=== PATIENT | female | born 1940 | race Caucasian/White ===

== ENCOUNTER 2018-07-11 13:11 | Inpatient (IN) | payer MEDICARE, OTHER ==
[2018-07-11 13:11] VITALS: BMI 34.3
--- NOTE | 2018-07-11 13:52 | ED PDOC ---
Syncope/Near Syncope/Dizziness Time Seen by Provider: 07/11/18 13:23 Chief Complaint (Nursing): Dizziness/Lightheaded Chief Complaint (Provider): Dizziness/Lightheaded History Per: Patient History/Exam Limitations: no limitations Onset/Duration Of Symptoms: Other (This morning) Additional Complaint(s): 77 years old female with a history of hypertension presents to ER for an evaluation of lightheadedness since this morning associated with mild nausea. Patient reports she took her blood pressure medication this morning. She denies headache, cheat pain, shortness of breath and focal weakness. PMD: Sabino Javed I Past Medical History Reviewed: Historical Data, Nursing Documentation, Vital Signs Vital Signs: Last Vital Signs Temp 97 F L 07/11/18 13:16 Pulse 89 07/11/18 13:33 Resp 18 07/11/18 13:16 BP 193/119 H 07/11/18 13:33 Pulse Ox 99 07/11/18 13:33 - Medical History PMH: HTN - Surgical History Surgical History: No Surg Hx - Family History Family History: States: Unknown Family Hx - Allergies Allergies/Adverse Reactions: Allergies Allergy/AdvReac Type Severity Reaction Status Date / Time Penicillins Allergy SWELLING Verified 07/11/18 13:14 Review of Systems ROS Statement: Except As Marked, All Systems Reviewed And Found Negative Cardiovascular: Positive for: Light Headedness. Negative for: Chest Pain Respiratory: Negative for: Shortness of Breath Gastrointestinal: Positive for: Nausea Neurological: Positive for: Weakness (Focal). Negative for: Headache Physical Exam - Reviewed Nursing Documentation Reviewed: Yes Vital Signs Reviewed: Yes - Physical Exam Appears: Positive for: Well, No Acute Distress Head Exam: Positive for: ATRAUMATIC, NORMOCEPHALIC Skin: Positive for: Normal Color, Warm, Dry Eye Exam: Positive for: Normal appearance, EOMI, PERRL Neck: Positive for: Normal, Painless ROM, Supple Cardiovascular/Chest: Positive for: Irregularly Irregular. Negative for: Murmur Respiratory: Positive for: Normal Breath Sounds. Negative for: Respiratory Distress Gastrointestinal/Abdominal: Positive for: Normal Exam, Soft. Negative for: Tenderness Back: Positive for: Normal Inspection. Negative for: L CVA Tenderness, R CVA Tenderness Extremity: Positive for: Normal ROM. Negative for: Pedal Edema, Swelling Neurologic/Psych: Positive for: Alert, Oriented (x3) - ECG O2 Sat by Pulse Oximetry: 99 (RA) Pulse Ox Interpretation: Normal Medical Decision Making Medical Decision Making: Time: 1331 MDM: uncontrolled hypertension --Will obtain EKG and treat with Metoprolol 25 mg PO Scribe Attestation: Documented by Kaitlyn Hadley, acting as a scribe for Vimal Plaza MD. Provider Scribe Attestation: All medical record entries made by the Scribe were at my direction and personally dictated by me. I have reviewed the chart and agree that the record accurately reflects my personal performance of the history, physical exam, medical decision making, and the department course for this patient. I have also personally directed, reviewed, and agree with the discharge instructions and disposition. CHADSVASC2 score 4. Will consult cardiology re anticoagulation Discussed with Dr. Khoury, recommends SubQ Lovenox Disposition - Clinical Impression Clinical Impression: New onset a-fib - Patient ED Disposition Is Patient to be Admitted: Yes - Disposition Disposition Time: 14:01 Condition: FAIR Forms: [employer] ([place]an) - Pt Status Changed To: Hospital Disposition Of: Observation - POA Present On Arrival: None
[2018-07-11] MEDS ORDERED: Enoxaparin 120 mg Syringe SC STA (14:07)
[2018-07-11 14:33] LABS: BASO % 0.5 % (0.0-2.0); EOS % 0.5 % (0.0-4.0); HEMOGLOBIN 12.5 g/dL (12.0-16.0); LYMPH # 1.3 K/uL (1.0-4.3); LYMPH % 14.2 % (20.0-40.0); MEAN CELL VOLUME 95.6 fl (81.0-99.0); MEAN CORPUSCULAR HEMOGLOBIN 32.1 pg (27.0-31.0); MEAN CORPUSCULAR HGB CONC 33.6 g/dL (33.0-37.0); MEAN PLATELET VOLUME 7.7 fl (7.2-11.7); MONO # 0.3 K/uL (0.0-0.8); MONO % 3.5 % (0.0-10.0); NEUT # 7.3 K/uL (1.8-7.0); NEUT % 81.3 % (50.0-75.0); NRBC % 0.2 % (0.0-0.0); RBC 3.89 Mil/uL (3.80-5.20); RED CELL DISTRIBUTION WIDTH 13.4 % (11.5-14.5); WHITE BLOOD COUNT 8.9 K/uL (4.8-10.8)
[2018-07-11 14:41] LABS: ALB/GLOB RATIO 1.4 (1.0-2.1); ALBUMIN 4.3 g/dL (3.5-5.0); ALT/SGPT 31 U/L (9-52); AST/SGOT 24 U/L (14-36); BLOOD UREA NITROGEN 16 mg/dl (7-17); CALCIUM 9.2 mg/dL (8.4-10.2); GFR NON-AFRICAN AMERICAN > 60
[2018-07-11 15:13] LABS: T3 1.08 nmol/L (1.49-2.60)
--- NOTE | 2018-07-11 19:49 | CP.PCM.CON ---
History of Present Illness - History of Present Illness History of Present Illness: THE PATIENT IS A 77 YEAR OLD FEMALE WHO I KNOW FROM MY PRIVATE OFFICE PRACTICE. SHE HAS A HISTORY OF HYPERTENSION AND IS ON METOPROLOL, VERAPAMIL AND LOSARTAN. SHE NEVER HAD A HEART PROBLEM SUCH CAD. SHE STATES SHE WAS FINE YESTERDAY BUT WHEN SHE WOKE UP THIS MORNING SHE WAS LIGHTHEADED AND FELT LIKE SHE MIGHT PASS OUT AND SHE HAD NAUSEA BUT DID NOT VOMIT. SHE CAME TO THE ER AND WAS FOUND TO HAVE NEW ONSET ATRIAL FIBRILLATION. SHE STATES SHE TOOK HER MEDICINES AT HOME THIS MORNING AND WAS GIVEN MOR METOPROLOL IN THE ER AND SHE WAS STARTED ON LOVENOX. SHE DENIES CHEST PAIN OR PALPITATIONS. I WAS CALLED BY DR JONES TO SEE HER. Past Patient History - Past Social History Smoking Status: Former Smoker - CARDIAC Hx Hypertension: Yes - PULMONARY Hx Respiratory Disorders: No - NEUROLOGICAL Hx Neurological Disorder: No - HEENT Hx HEENT Problems: No - RENAL Hx Chronic Kidney Disease: No - ENDOCRINE/METABOLIC Hx Endocrine Disorders: No - HEMATOLOGICAL/ONCOLOGICAL Hx Blood Disorders: No - INTEGUMENTARY Hx Dermatological Problems: No - MUSCULOSKELETAL/RHEUMATOLOGICAL Hx Musculoskeletal Disorders: No - GASTROINTESTINAL Hx Gastrointestinal Disorders: No - GENITOURINARY/GYNECOLOGICAL Hx Genitourinary Disorders: No - PSYCHIATRIC Hx Psychophysiologic Disorder: No Hx Substance Use: No - SURGICAL HISTORY Other/Comment: tumor removal left breast Meds Allergies/Adverse Reactions: Allergies Allergy/AdvReac Type Severity Reaction Status Date / Time Penicillins Allergy SWELLING Verified 07/11/18 13:14 Physical Exam - Respiratory Exam Respiratory Exam: Clear to Auscultation Bilateral - Cardiovascular Exam Cardiovascular Exam: Irregular Rhythm, +S1, +S2 - Extremities Exam Additional comments: MILD LE EDEMA BILAT(CHRONIC) - Additional Findings Additional findings: EKG ATRIAL FIBRILLATION 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 ATRIAL FIBRILLATION TROPONIN NORMAL Results - Vital Signs Recent Vital Signs: Last Vital Signs Temp 97 F L 07/11/18 13:16 Pulse 82 07/11/18 19:26 Resp 19 07/11/18 19:26 BP 182/72 H 07/11/18 19:26 Pulse Ox 98 07/11/18 19:26 - Labs Result Diagrams: 07/11/18 14:28 07/11/18 14:28 Labs: Laboratory Results - last 24 hr 07/11/18 07/11/18 14:28 14:28 WBC 8.9 RBC 3.89 Hgb 12.5 Hct 37.2 MCV 95.6 MCH 32.1 H MCHC 33.6 RDW 13.4 Plt Count 254 MPV 7.7 Neut % (Auto) 81.3 H Lymph % (Auto) 14.2 L [place] % (Auto) 3.5 Eos % (Auto) 0.5 Baso % (Auto) 0.5 Neut # (Auto) 7.3 H Lymph # (Auto) 1.3 [place] # (Auto) 0.3 Eos # (Auto) 0.0 Baso # (Auto) 0.0 Sodium 134 Potassium 3.9 Chloride 96 L Carbon Dioxide 25 Anion Gap 17 BUN 16 Creatinine 0.4 L Est GFR ( Amer) > 60 Est GFR (Non-Af Amer) > 60 Random Glucose 140 H Calcium 9.2 Total Bilirubin 0.4 AST 24 ALT 31 Alkaline Phosphatase 77 Troponin I 0.0140 Total Protein 7.4 Albumin 4.3 Globulin 3.1 Albumin/Globulin Ratio 1.4 Thyroxine (T4) 7.50 Total T3 1.08 L TSH 3rd Generation 1.18 Assessment & Plan - Assessment and Plan (Free Text) Assessment: NEW ONSET ATRIAL FIBRILLATION HYPERTENSION Plan: THE PATIENT WILL BE ADMITTED TO N ON TELEMETRY CONTINUE METOPROLOL 100 MGS PO Q 12 HOURS AND WILL INCREASE LOSARTAN TO 100 MGS DAILY WILL ADD DIGOXIN AND O2 SERIAL EKGS AND CE, TFT, CXR ECHOCARDIOGRAM NOTE: I WILL BE AWAY UNTIL 07/21/[address] CHRISTEL JAMISON WILL BE COVERING ME
[2018-07-11] MEDS ORDERED: Digoxin 250 mcg (0.25 mg) Tab PO ONE (19:59)
[2018-07-11] MEDS ORDERED: Digoxin 250 mcg (0.25 mg) Tab ONE (20:45)
[2018-07-12] MEDS: Latanoprost 0.005% Opht SOUTION OU SCH ×2 (00:53→20:59)
--- NOTE | 2018-07-12 09:08 | RAD ---
Date of service: 07/11/2018 HISTORY: AT [facility] COMPARISON: Chest radiograph dated 08/08/2016. FINDINGS: LUNGS: No active pulmonary disease. PLEURA: No significant pleural effusion identified, no pneumothorax apparent. CARDIOVASCULAR: Aortic atherosclerotic calcifications. Cardiomediastinal silhouette stably enlarged. OSSEOUS STRUCTURES: Unchanged. VISUALIZED UPPER ABDOMEN: Normal. OTHER FINDINGS: None. IMPRESSION: No active disease.
[2018-07-12] MEDS: Enoxaparin 120 mg Syringe SC SCH ×2 (09:24→20:58)
[2018-07-12] MEDS: Digoxin 125 mcg (0.125 mg) Tab PO SCH (09:24)
--- NOTE | 2018-07-12 13:17 | CP.PCM.PN ---
Subjective - Date & Time of Evaluation Date of Evaluation: 07/12/18 Time of Evaluation: 13:13 - Subjective Subjective: Resting comfortably, c/o nausea,eating lunch now Objective - Vital Signs/Intake and Output Vital Signs (last 24 hours): Temp Pulse Resp BP Pulse Ox 97.4 F L 81 19 191/96 H 96 07/12/18 12:14 07/12/18 12:14 07/12/18 12:14 07/12/18 12:14 07/12/18 12:14 - Medications Medications: Current Medications Aspirin (Ecotrin) 81 mg PO DAILY [facility] Last Admin: 07/12/18 09:24 Dose: 81 mg Digoxin (Digoxin) 0.125 mg PO DAILY [facility] Last Admin: 07/12/18 09:24 Dose: 0.125 mg Enoxaparin Sodium (Lovenox) 120 mg SC Q12 [facility]; Protocol Last Admin: 07/12/18 09:24 Dose: 120 mg Home Med (Timolol Xe 0.5% [Timoptic-Xe 0.5% Opht Gel]) 1 drop EACHEYE DAILY [facility] Latanoprost (Xalatan Opht) 1 drop OU HS [facility] Last Admin: 07/12/18 00:53 Dose: Not Given Losartan Potassium (Cozaar) 100 mg PO DAILY [facility] Last Admin: 07/12/18 09:24 Dose: 100 mg Metoprolol Tartrate (Lopressor) 100 mg PO Q12 [facility] Last Admin: 07/12/18 09:24 Dose: 100 mg Ondansetron HCl (Zofran Inj) 4 mg IVP Q6 PRN PRN Reason: Nausea/Vomiting Last Admin: 07/12/18 13:09 Dose: 4 mg - Labs Labs: 07/11/18 14:28 07/11/18 14:28 - Head Exam Head Exam: NORMAL INSPECTION - Respiratory Exam Respiratory Exam: Clear to Ausculation Bilateral - Cardiovascular Exam Cardiovascular Exam: Irregular Rhythm - GI/Abdominal Exam GI & Abdominal Exam: Normal Bowel Sounds - Extremities Exam Extremities Exam: Normal Inspection Assessment and Plan - Assessment and Plan (Free Text) Assessment: #1 New onset atrial fibrillation: HR controlled on metprolol and digoxin. Echo reviewed LVEF 50% LAE 4.6 cm , mild MR , observe on telemetry continue anticoagulation. #2 Hypertension: Bp elevated on Losartan , Metoprolol will add Amlodipine for better Bp control 5mg now
--- NOTE | 2018-07-12 18:36 | CARD ---
APPROVED REPORT Date of service: 07/12/2018 EXAM: Two-dimensional and M-mode echocardiogram with Doppler and color Doppler. Other Information Quality : GoodRhythm : Atrial Fibrillation INDICATION Atrial Fibrillation 2D DIMENSIONS IVSd1.24 (0.7-1.1cm)LVDd5.24 (3.9-5.9cm) LVOT Diameter2.05 (1.8-2.4cm)PWd1.24 (0.7-1.1cm) IVSs1.11 (0.8-1.2cm)LVDs4.11 (2.5-4.0cm) FS (%) 21.6 %PWs1.55 (0.8-1.2cm) M-Mode DIMENSIONS Left Atrium (MM)5.46 (2.5-4.0cm)IVSd0.99 (0.7-1.1cm) Aortic Root2.85 (2.2-3.7cm)LVDd5.49 (4.0-5.6cm) Aortic Cusp Exc.1.65 (1.5-2.0cm)PWd1.13 (0.7-1.1cm) IVSs1.09 cmFS (%) 27 % LVDs4.04 (2.0-3.8cm)PWs1.62 cm Mitral Valve E/A ratio0.0 TDI E/Lateral E'0.0E/Medial E'0.0 LEFT VENTRICLE The left ventricle is normal size. There is normal left ventricular wall thickness. The systolic function is mildly impaired. The estimated ejection fraction is -45% There is mild global hypokinesis of the left ventricle. The left ventricular diastolic function cannot be assessed due to underlying atrial fibrillation. No left ventricle thrombus noted on this study. There is no ventricular septal defect visualized. There is no left ventricular aneurysm. There is no mass noted in the left ventricle. RIGHT VENTRICLE The right ventricle is normal size. There is normal right ventricular wall thickness. The right ventricular systolic function is normal. ATRIA The left atrium is moderately dilated. The right atrium size is normal. The interatrial septum is intact with no evidence for an atrial septal defect. AORTIC VALVE The aortic valve is normal in structure. No aortic regurgitation is present. There is no aortic valvular stenosis. There is no aortic valvular vegetation. MITRAL VALVE The mitral valve is normal in structure. There is no evidence of mitral valve prolapse. There is no mitral valve stenosis. There is mild mitral valve regurgitation noted. TRICUSPID VALVE The tricuspid valve is normal in structure. There is no tricuspid valve regurgitation noted. There is no tricuspid valve prolapse or vegetation. There is no tricuspid valve stenosis. PULMONIC VALVE The pulmonary valve is normal in structure. There is trivial pulmonic valvular regurgitation. There is no pulmonic valvular stenosis. GREAT VESSELS The aortic root is normal in size. The ascending aorta is normal in size. The pulmonary artery is normal. The IVC is normal in size and collapses >50% with inspiration. PERICARDIAL EFFUSION There is no pericardial effusion. There is no pleural effusion. <Conclusion> Technically difficult study The systolic function is mildly impaired. The estimated ejection fraction is -45-50% There is mild global hypokinesis of the left ventricle. The left ventricular diastolic function cannot be assessed due to underlying atrial fibrillation. The left atrium is moderately dilated. There is mild mitral valve regurgitation noted. There is no tricuspid valve regurgitation noted.
--- NOTE | 2018-07-12 21:30 | HP ---
HISTORY OF PRESENT ILLNESS: Ms. Garcia is a 77-year-old female who was admitted via the emergency room because of feeling faint, associated with lightheadedness and a feeling like she was going to pass out on the morning of admission. She also indicates that she has had nausea but did not vomit, although she vomited this morning. She came to the emergency room and was found to be in rapid atrial fibrillation which is new. PAST MEDICAL HISTORY: She has a past medical history of hypertension; left breast cancer, status post biopsy and is presently being treated for it, poor compliance to therapy and diet. FAMILY HISTORY: Non-revealing. SOCIAL HISTORY: She does not smoke or drink. REVIEW OF SYSTEMS: Essentially unremarkable. PHYSICAL EXAMINATION: GENERAL: The patient is alert and oriented, appears to be still in some distress because of dizziness and feeling faint. She is morbidly obese. VITAL SIGNS: On admission, blood pressure 182/72 with a pulse of 82, respiratory rate is 19 per minute, O2 sat 98% on room air, temperature 97 degrees Fahrenheit. HEENT: Pupils are equal and reactive to light and accommodation. JVP flat. Mouth shows fair hygiene. LUNGS: Clear. HEART: Irregular rhythm. No murmurs or gallop appreciated. BREASTS: History of left breast cancer, status post surgical resection. ABDOMEN: Soft, nontender. No organomegaly. EXTREMITIES: Show no edema or cyanosis. CENTRAL NERVOUS SYSTEM: Except for feeling her gait is unsteady, grossly unremarkable. LABORATORY DATA: WBC 8.9, hemoglobin 12.5, platelet count 254,000. Sodium 134, potassium 3.9, BUN 16, creatinine 0.4, glucose 140. Chest x-ray, no acute cardiopulmonary pathology. EKG shows atrial fibrillation. IMPRESSION: New-onset atrial fibrillation with uncontrolled ventricular response, rule out coronary artery disease, rule out valvular heart disease, rule out thyroid abnormalities, hypertension poorly controlled, poor compliance to therapy and diet, morbid obesity. PLAN: Continue therapy as per Cardiology. The patient is slowly being digitalized. She will also need anticoagulation. Serial cardiac enzymes and thyroid function studies are ordered. Echocardiogram ordered to rule out valvular heart disease. We will continue therapy as ordered in telemetry. Sabino Javed MD Psychiatric # [id number]
[2018-07-13 07:15] LABS: BLOOD UREA NITROGEN 10 mg/dl (7-17); CALCIUM 8.9 mg/dL (8.4-10.2); GFR NON-AFRICAN AMERICAN > 60
[2018-07-13] MEDS: Digoxin 125 mcg (0.125 mg) Tab PO SCH (08:59)
[2018-07-13] MEDS: Enoxaparin 120 mg Syringe SC SCH ×2 (09:02→21:58)
--- NOTE | 2018-07-13 10:22 | CARD ---
APPROVED REPORT Date of service: 07/11/2018 EKG Measurement Heart [id number] <Conclusion> Atrial fibrillation Minimal voltage criteria for LVH, may be normal variant Septal infarct, age undetermined Abnormal ECG
--- NOTE | 2018-07-13 11:47 | CP.PCM.PN ---
Subjective - Date & Time of Evaluation Date of Evaluation: 07/13/18 Time of Evaluation: 11:47 - Subjective Subjective: STILL NAUSEOUS BUT LESS NO CHEST PAINS/PALPITATIONS NO SOB GAIT UNSTEADY STILL WEAK Objective - Vital Signs/Intake and Output Vital Signs (last 24 hours): Temp Pulse Resp BP Pulse Ox 97.8 F 62 19 146/74 98 07/13/18 08:03 07/13/18 08:58 07/13/18 08:03 07/13/18 08:58 07/13/18 08:03 - Medications Medications: Current Medications Aspirin (Ecotrin) 81 mg PO DAILY [facility] Last Admin: 07/13/18 08:59 Dose: 81 mg Digoxin (Digoxin) 0.125 mg PO DAILY [facility] Last Admin: 07/13/18 08:59 Dose: 0.125 mg Enoxaparin Sodium (Lovenox) 120 mg SC Q12 [facility]; Protocol Last Admin: 07/13/18 09:02 Dose: 120 mg Home Med (Timolol Xe 0.5% [Timoptic-Xe 0.5% Opht Gel]) 1 drop EACHEYE DAILY [facility] Latanoprost (Xalatan Opht) 1 drop OU HS [facility] Last Admin: 07/12/18 20:59 Dose: 1 drop Losartan Potassium (Cozaar) 100 mg PO DAILY [facility] Last Admin: 07/13/18 08:58 Dose: 100 mg Metoprolol Tartrate (Lopressor) 100 mg PO Q12 [facility] Last Admin: 07/13/18 08:58 Dose: 100 mg Ondansetron HCl (Zofran Inj) 4 mg IVP Q6 PRN PRN Reason: Nausea/Vomiting Last Admin: 07/12/18 13:09 Dose: 4 mg - Labs Labs: 07/11/18 14:28 07/13/18 05:04 - Constitutional Appears: Chronically Ill - Head Exam Head Exam: ATRAUMATIC, NORMAL INSPECTION, NORMOCEPHALIC - Eye Exam Eye Exam: EOMI, Normal appearance, PERRL Pupil Exam: NORMAL ACCOMODATION, PERRL - ENT Exam ENT Exam: Mucous Membranes Moist, Normal Exam - Neck Exam Neck Exam: Full ROM, Normal Inspection. absent: Lymphadenopathy - Respiratory Exam Respiratory Exam: Clear to Ausculation Bilateral, NORMAL BREATHING PATTERN - Cardiovascular Exam Cardiovascular Exam: Irregular Rhythm, +S1, +S2. absent: Murmur - GI/Abdominal Exam GI & Abdominal Exam: Soft, Normal Bowel Sounds. absent: Tenderness - Rectal Exam Rectal Exam: NORMAL INSPECTION - Extremities Exam Extremities Exam: Full ROM, Normal Capillary Refill, Normal Inspection. absent: Joint Swelling, Pedal Edema - Back Exam Back Exam: NORMAL INSPECTION - Neurological Exam Neurological Exam: Abnormal Gait, Alert, Awake, CN II-XII Intact, Oriented x3 - Psychiatric Exam Psychiatric exam: Normal Affect, Normal Mood - Skin Skin Exam: Dry, Intact, Normal Color, Warm Assessment and Plan - Assessment and Plan (Free Text) Assessment: NEW ONSET ATRIAL FIB UNSTEADY GAIT VALVULAR HEART DZ HTN OBESITY NAUSEA HYPERGLYCEMIA--R/O DM Plan: CONTINUE RX ORDERED PT EVAL [employer]A MANAGER FOR SUBACUTE CARE
[2018-07-13] MEDS: Latanoprost 0.005% Opht SOUTION OU SCH (21:59)
[2018-07-14] MEDS: Digoxin 125 mcg (0.125 mg) Tab PO SCH (08:44)
[2018-07-14] MEDS: Enoxaparin 120 mg Syringe SC SCH (08:45)
--- NOTE | 2018-07-14 08:53 | CP.PCM.PN ---
Subjective - Date & Time of Evaluation Date of Evaluation: 07/14/18 Time of Evaluation: 08:53 - Subjective Subjective: C/O FEELING WEAK GAIT STILL UNSTEADY NO RECURRENCE OF NAUSEA BP STILL ELEVATED Objective - Vital Signs/Intake and Output Vital Signs (last 24 hours): Temp Pulse Resp BP Pulse Ox 98 F 65 20 177/83 H 97 07/14/18 08:37 07/14/18 08:44 07/14/18 05:00 07/14/18 08:44 07/14/18 05:00 - Medications Medications: Current Medications Acetaminophen (Tylenol 325mg Tab) 650 mg PO Q4 PRN PRN Reason: Headache Last Admin: 07/14/18 08:37 Dose: 650 mg Amlodipine Besylate (Norvasc) 10 mg PO DAILY [facility] Last Admin: 07/14/18 08:44 Dose: 10 mg Aspirin (Ecotrin) 81 mg PO DAILY [facility] Last Admin: 07/14/18 08:44 Dose: 81 mg Digoxin (Digoxin) 0.125 mg PO DAILY [facility] Last Admin: 07/14/18 08:44 Dose: 0.125 mg Enoxaparin Sodium (Lovenox) 120 mg SC Q12 [facility]; Protocol Last Admin: 07/14/18 08:45 Dose: 120 mg Latanoprost (Xalatan Opht) 1 drop OU HS [facility] Last Admin: 07/13/18 21:59 Dose: 1 drop Losartan Potassium (Cozaar) 100 mg PO DAILY [facility] Last Admin: 07/14/18 08:38 Dose: 100 mg Metoprolol Tartrate (Lopressor) 100 mg PO Q12 [facility] Last Admin: 07/14/18 08:44 Dose: 100 mg Ondansetron HCl (Zofran Inj) 4 mg IVP Q6 PRN PRN Reason: Nausea/Vomiting Last Admin: 07/12/18 13:09 Dose: 4 mg Timolol Maleate (Timoptic 0.5% Ophth Soln) 1 drop OU BID [facility] - Labs Labs: 07/11/18 14:28 07/13/18 05:04 - Constitutional Appears: Chronically Ill - Head Exam Head Exam: ATRAUMATIC, NORMAL INSPECTION, NORMOCEPHALIC - Eye Exam Eye Exam: EOMI, Normal appearance, PERRL Pupil Exam: NORMAL ACCOMODATION, PERRL - ENT Exam ENT Exam: Mucous Membranes Moist, Normal Exam - Neck Exam Neck Exam: Full ROM, Normal Inspection. absent: Lymphadenopathy - Respiratory Exam Respiratory Exam: Clear to Ausculation Bilateral, NORMAL BREATHING PATTERN - Cardiovascular Exam Cardiovascular Exam: Irregular Rhythm, +S1, +S2. absent: Murmur - GI/Abdominal Exam GI & Abdominal Exam: Soft, Normal Bowel Sounds. absent: Tenderness - Rectal Exam Rectal Exam: NORMAL INSPECTION - Extremities Exam Extremities Exam: Full ROM, Normal Capillary Refill, Normal Inspection. 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
--- NOTE | 2018-07-14 13:07 | CP.PCM.PN ---
Subjective - Date & Time of Evaluation Date of Evaluation: 07/14/18 Time of Evaluation: 13:04 - Subjective Subjective: mild improvement still c/o of unsteadyness, no cp or sob at baseline Objective - Vital Signs/Intake and Output Vital Signs (last 24 hours): Temp Pulse Resp BP Pulse Ox 98.1 F 75 20 166/75 H 97 07/14/18 13:03 07/14/18 13:03 07/14/18 13:03 07/14/18 13:03 07/14/18 13:03 - Medications Medications: Current Medications Acetaminophen (Tylenol 325mg Tab) 650 mg PO Q4 PRN PRN Reason: Headache Last Admin: 07/14/18 08:37 Dose: 650 mg Amlodipine Besylate (Norvasc) 10 mg PO DAILY [facility] Last Admin: 07/14/18 08:44 Dose: 10 mg Aspirin (Ecotrin) 81 mg PO DAILY [facility] Last Admin: 07/14/18 08:44 Dose: 81 mg Digoxin (Digoxin) 0.125 mg PO DAILY [facility] Last Admin: 07/14/18 08:44 Dose: 0.125 mg Enoxaparin Sodium (Lovenox) 120 mg SC Q12 [facility]; Protocol Last Admin: 07/14/18 08:45 Dose: 120 mg Latanoprost (Xalatan Opht) 1 drop OU HS [facility] Last Admin: 07/13/18 21:59 Dose: 1 drop Losartan Potassium (Cozaar) 100 mg PO DAILY [facility] Last Admin: 07/14/18 08:38 Dose: 100 mg Metoprolol Tartrate (Lopressor) 100 mg PO Q12 [facility] Last Admin: 07/14/18 08:44 Dose: 100 mg Ondansetron HCl (Zofran Inj) 4 mg IVP Q6 PRN PRN Reason: Nausea/Vomiting Last Admin: 07/12/18 13:09 Dose: 4 mg Timolol Maleate (Timoptic 0.5% Ophth Soln) 1 drop OU BID [facility] Last Admin: 07/14/18 10:26 Dose: 1 drop - Labs Labs: 07/11/18 14:28 07/13/18 05:04 - Neck Exam Neck Exam: Normal Inspection - Respiratory Exam Respiratory Exam: Clear to Ausculation Bilateral - Cardiovascular Exam Cardiovascular Exam: Irregular Rhythm - GI/Abdominal Exam GI & Abdominal Exam: Normal Bowel Sounds - Extremities Exam Extremities Exam: Normal Inspection Assessment and Plan - Assessment and Plan (Free Text) Assessment: #1 Atrial fibrillation : controlled ventricular response would continue on current dose beta soumya and digoxin. Will start NOAC dc Lovenox . Agree with rehab. #2 Hypertension : bp elevated in am , better control later in day would add low dose diuretic HCTZ 12.5mg qd
--- NOTE | 2018-07-14 14:29 | CP.PCM.PCO ---
Assessment & Plan - Assessment and Plan (Free Text) Assessment: pt. denies sob, cp, palpitations + reports dizziness , weakness especially with ambulation monitor orthostatic VS
--- NOTE | 2018-07-14 16:32 | CARD ---
APPROVED REPORT Date of service: 07/14/2018 EKG Measurement Heart [id number] <Conclusion> Atrial fibrillation with premature ventricular or aberrantly conducted complexes Left axis deviation Voltage criteria for left ventricular hypertrophy Nonspecific ST and T wave abnormality Abnormal ECG
[2018-07-14] MEDS: Latanoprost 0.005% Opht SOUTION OU SCH (21:09)
[2018-07-15] MEDS: Digoxin 125 mcg (0.125 mg) Tab PO SCH (08:59)
[2018-07-15 09:00] VITALS: PULSE 80
--- NOTE | 2018-07-15 09:30 | CP.PCM.PN ---
Subjective - Date & Time of Evaluation Date of Evaluation: 07/15/18 Time of Evaluation: 09:30 - Subjective Subjective: still dizzy but improving no chest pains/palpitations ekg--a.fib with controlled v-response Objective - Vital Signs/Intake and Output Vital Signs (last 24 hours): Temp Pulse Resp BP Pulse Ox 97.8 F 80 18 177/75 H 99 07/15/18 08:00 07/15/18 08:59 07/15/18 08:00 07/15/18 08:59 07/15/18 08:00 - Medications Medications: Current Medications Acetaminophen (Tylenol 325mg Tab) 650 mg PO Q4 PRN PRN Reason: Headache Last Admin: 07/14/18 08:37 Dose: 650 mg Amlodipine Besylate (Norvasc) 10 mg PO DAILY [facility] Last Admin: 07/15/18 08:59 Dose: 10 mg Aspirin (Ecotrin) 81 mg PO DAILY [facility] Last Admin: 07/15/18 09:03 Dose: 81 mg Dabigatran (Pradaxa) 150 mg PO BID [facility]; Protocol Last Admin: 07/15/18 08:58 Dose: 150 mg Digoxin (Digoxin) 0.125 mg PO DAILY [facility] Last Admin: 07/15/18 08:59 Dose: 0.125 mg Hydrochlorothiazide (Microzide) 12.5 mg PO DAILY [facility] Last Admin: 07/14/18 17:10 Dose: 12.5 mg Latanoprost (Xalatan Opht) 1 drop OU HS [facility] Last Admin: 07/14/18 21:09 Dose: 1 drop Losartan Potassium (Cozaar) 100 mg PO DAILY [facility] Last Admin: 07/15/18 08:59 Dose: 100 mg Metoprolol Tartrate (Lopressor) 100 mg PO Q12 [facility] Last Admin: 07/15/18 08:59 Dose: 100 mg Ondansetron HCl (Zofran Inj) 4 mg IVP Q6 PRN PRN Reason: Nausea/Vomiting Last Admin: 07/12/18 13:09 Dose: 4 mg Timolol Maleate (Timoptic 0.5% Ophth Soln) 1 drop OU BID [facility] Last Admin: 07/15/18 09:00 Dose: 1 drop - Labs Labs: 07/11/18 14:28 07/13/18 05:04 - Constitutional Appears: No Acute Distress - Head Exam Head Exam: ATRAUMATIC, NORMAL INSPECTION, NORMOCEPHALIC - Eye Exam Eye Exam: EOMI, Normal appearance, PERRL Pupil Exam: NORMAL ACCOMODATION, PERRL - ENT Exam ENT Exam: Mucous Membranes Moist, Normal Exam - Neck Exam Neck Exam: Full ROM, Normal Inspection. absent: Lymphadenopathy - Respiratory Exam Respiratory Exam: Clear to Ausculation Bilateral, NORMAL BREATHING PATTERN - Cardiovascular Exam Cardiovascular Exam: Irregular Rhythm, +S1, +S2. absent: Murmur - GI/Abdominal Exam GI & Abdominal Exam: Soft, Normal Bowel Sounds. absent: Tenderness - Rectal Exam Rectal Exam: NORMAL INSPECTION - Extremities Exam Extremities Exam: Full ROM, Normal Capillary Refill, Normal Inspection. absent: Joint Swelling, Pedal Edema - Back Exam Back Exam: NORMAL INSPECTION - Neurological Exam Neurological Exam: Alert, Awake, CN II-XII Intact, Normal Gait, Oriented x3 - Psychiatric Exam Psychiatric exam: Normal Affect, Normal Mood - Skin Skin Exam: Dry, Intact, Normal Color, Warm Assessment and Plan - Assessment and Plan (Free Text) Assessment: atrial fib htn derconditioning Plan: transfer to tcu
[2018-07-15 17:10] VITALS: BP 157/81; PULSE 67; RESP 16; TEMP 98.6; O2SAT 97
--- NOTE | 2018-07-16 09:26 | CP.PCM.DIS ---
Provider - Provider Date of Admission: 07/12/18 10:47 Attending physician: Sabino Javed MD Consults: 07/11/18 13:59 Physician Consult Stat Comment: Consulting Provider: Vincent Khoury Consulting Physician: Vincent Khoury Reason for Consult: New onset afib Time Spent in preparation of Discharge (in minutes): 30 Diagnosis - Discharge Diagnosis (1) Hypertension Status: Acute Comment: BP STILL POORLY CONTROLLED. WILL MONITOR AND ADJUST MEDS (2) Hyperglycemia Status: Acute Comment: MONITOR ACUCHECKS. MAY NEED ORAL HYPOGLYCEMIC RX (3) Obesity Status: Acute (4) New onset a-fib Status: Acute Comment: CONTINUE RX WITH DIG AND PRADAXA. SERIAL EKGS. WILL TRANSFER TO TCU FOR OT/PT Hospital Course - Lab Results Lab Results: Most Recent Lab Values WBC 8.9 K/uL (4.8-10.8) 07/11/18 14:28 RBC 3.89 Mil/uL (3.80-5.20) 07/11/18 14:28 Hgb 12.5 g/dL (12.0-16.0) 07/11/18 14:28 Hct 37.2 % (34.0-47.0) 07/11/18 14:28 MCV 95.6 fl (81.0-99.0) 07/11/18 14:28 MCH 32.1 pg (27.0-31.0) H 07/11/18 14:28 MCHC 33.6 g/dL (33.0-37.0) 07/11/18 14:28 RDW 13.4 % (11.5-14.5) 07/11/18 14:28 Plt Count 254 K/uL (130-400) 07/11/18 14:28 MPV 7.7 fl (7.2-11.7) 07/11/18 14:28 Neut % (Auto) 81.3 % (50.0-75.0) H 07/11/18 14:28 Lymph % (Auto) 14.2 % (20.0-40.0) L 07/11/18 14:28 [place] % (Auto) 3.5 % (0.0-10.0) 07/11/18 14:28 Eos % (Auto) 0.5 % (0.0-4.0) 07/11/18 14:28 Baso % (Auto) 0.5 % (0.0-2.0) 07/11/18 14:28 Neut # (Auto) 7.3 K/uL (1.8-7.0) H 07/11/18 14:28 Lymph # (Auto) 1.3 K/uL (1.0-4.3) 07/11/18 14:28 [place] # (Auto) 0.3 K/uL (0.0-0.8) 07/11/18 14: Eos # (Auto) 0.0 K/uL (0.0-0.7) 07/11/18 14: Baso # (Auto) 0.0 K/uL (0.0-0.2) 07/11/18 14:28 Sodium 140 mmol/l (132-148) 07/13/18 05:04 Potassium 4.1 MMOL/L (3.6-5.0) 07/13/18 05:04 Chloride 99 mmol/L (98-107) 07/13/18 05:04 Carbon Dioxide 28 mmol/L (22-30) 07/13/18 05:04 Anion Gap 17 (10-20) 07/13/18 05:04 BUN 10 mg/dl (7-17) 07/13/18 05:04 Creatinine 0.5 mg/dl (0.7-1.2) L 07/13/18 05:04 Est GFR ( Amer) > 60 07/13/18 05:04 Est GFR (Non-Af Amer) > 60 07/13/18 05:04 POC Glucose (mg/dL) 145 mg/dL (65-110) H 07/15/18 16:05 Random Glucose 140 mg/dL (65-105) H 07/13/18 05:04 Calcium 8.9 mg/dL (8.4-10.2) 07/13/18 05:04 Total Bilirubin 0.4 mg/dl (0.2-1.3) 07/11/18 14:28 AST 24 U/L (14-36) 07/11/18 14:28 ALT 31 U/L (9-52) 07/11/18 14:28 Alkaline Phosphatase 77 U/L (38-126) 07/11/18 14:28 Troponin I < 0.0120 ng/mL (0.00-0.120) 07/11/18 20:48 Total Protein 7.4 G/DL (6.3-8.2) 07/11/18 14:28 Albumin 4.3 g/dL (3.5-5.0) 07/11/18 14:28 Globulin 3.1 gm/dL (2.2-3.9) 07/11/18 14:28 Albumin/Globulin Ratio 1.4 (1.0-2.1) 07/11/18 14:28 Thyroxine (T4) 7.50 ug/dl (5.5-11.0) 07/11/18 14:28 Total T3 1.08 nmol/L (1.49-2.60) L 07/11/18 14:28 TSH 3rd Generation 1.18 mIU/ML (0.46-4.68) 07/11/18 14:28 Digoxin 0.5 ng/mL (0.8-2.0) L 07/13/18 05:04 Discharge Exam - Head Exam Head Exam: ATRAUMATIC, NORMAL INSPECTION, NORMOCEPHALIC - Eye Exam Eye Exam: EOMI, Normal appearance, PERRL Pupil Exam: NORMAL ACCOMODATION, PERRL - Cardiovascular Exam Cardiovascular Exam: Irregular Rhythm - GI/Abdominal Exam GI & Abdominal Exam: Normal Bowel Sounds - Rectal Exam Rectal Exam: NORMAL INSPECTION - Neurological Exam Neurological exam: Alert, CN II-XII Intact, Normal Gait, Oriented x3, Reflexes Normal - Psychiatric Exam Psychiatric exam: Normal Affect, Normal Mood - Skin Skin Exam: Dry, Intact, Normal Color, Warm Discharge Plan - Follow Up Plan Condition: FAIR Disposition: TRANSF TO SNF Instructions: Atrial Fibrillation (DC) Referrals: Sabino Javed MD [Family Provider] -
== END 2018-07-15 18:40 | DRG 309 ==
LOC: H.ER 13:11 → INTOOBSV 13:58 → UNDOADMOB 13:58 → OBSVTOIN 13:58 → H.ERHOLD 13:58 → H.TEL 21:50 → OBSVTOIN 07-12 10:47 → H.ERHOLD 07-12 10:47 → H.TEL 07-12 10:47
PROVIDERS: ADMIT Internal Medicine Pulmonary Disease; ATTEND Internal Medicine Pulmonary Disease
DX: I48.91 Unspecified atrial fibrillation (principal); Z68.41 Body mass index [BMI] 40.0-44.9, adult; E66.01 Morbid (severe) obesity due to excess calories; Z71.3 Dietary counseling and surveillance; C50.912 Malignant neoplasm of unspecified site of left female breast; I10 Essential (primary) hypertension; E66.9 Obesity, unspecified; Z79.01 Long term (current) use of anticoagulants; Z87.891 Personal history of nicotine dependence; R26.81 Unsteadiness on feet; R73.9 Hyperglycemia, unspecified

== ENCOUNTER 2018-07-15 18:45 | Inpatient (IN) | payer OTHER ==
[2018-07-15 19:19] VITALS: BMI 35.4
[2018-07-15 19:41] VITALS: RESP 20
[2018-07-15] MEDS: Latanoprost 0.005% Opht SOUTION OU SCH (21:21)
[2018-07-16] MEDS: Digoxin 125 mcg (0.125 mg) Tab PO SCH (09:09)
--- NOTE | 2018-07-16 09:12 | CP.PCM.HP ---
History of Present Illness - History of Present Illness History of Present Illness: 77 YR OLD FEMALE ADMITTED WITH NEW ONSET ATRIAL FIBRILLATION THEN TRANSFERRED TO TRANSITIONAL CARE BECAUSE OF DECONDITIONING. HX OF HYPERTENSION,L BREAST CANCER AND OBESITY UNREMARKABLE FAMILY HISTORY [id number] Present on Admission - Present on Admission Any Indicators Present on Admission: No Past Patient History - Past Medical History & Family History Past Medical History?: Yes - Past Social History Smoking Status: Never Smoked - CARDIAC Hx Cardiac Disorders: Yes Hx Hypertension: Yes - PULMONARY Hx Respiratory Disorders: No - NEUROLOGICAL Hx Neurological Disorder: No - HEENT Hx HEENT Problems: No - RENAL Hx Chronic Kidney Disease: No - ENDOCRINE/METABOLIC Hx Endocrine Disorders: No - HEMATOLOGICAL/ONCOLOGICAL Hx Blood Disorders: No Hx AIDS: No Hx Human Immunodeficiency Virus (HIV): No - INTEGUMENTARY Hx Dermatological Problems: No - MUSCULOSKELETAL/RHEUMATOLOGICAL Hx Musculoskeletal Disorders: No Hx Falls: No - GASTROINTESTINAL Hx Gastrointestinal Disorders: No - GENITOURINARY/GYNECOLOGICAL Hx Genitourinary Disorders: Yes Other/Comment: 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 - PSYCHIATRIC Hx Psychophysiologic Disorder: No Hx Substance Use: No - SURGICAL HISTORY Other/Comment: tumor removal left breast - ANESTHESIA Hx Anesthesia: Yes Hx Anesthesia Reactions: No Hx Malignant Hyperthermia: No Meds Allergies/Adverse Reactions: Allergies Allergy/AdvReac Type Severity Reaction Status Date / Time Penicillins Allergy SWELLING Verified 07/15/18 19:20 Physical Exam - Constitutional Appears: No Acute Distress, Chronically Ill - Head Exam Head Exam: ATRAUMATIC, NORMAL INSPECTION, NORMOCEPHALIC - Eye Exam Eye Exam: EOMI, Normal appearance, PERRL Pupil Exam: NORMAL ACCOMODATION, PERRL - ENT Exam ENT Exam: Mucous Membranes Moist, Normal Exam - Neck Exam Neck exam: Positive for: Normal Inspection - Respiratory Exam Respiratory Exam: Clear to Auscultation Bilateral, NORMAL BREATHING PATTERN - Cardiovascular Exam Cardiovascular Exam: Irregular Rhythm - GI/Abdominal Exam GI & Abdominal Exam: Normal Bowel Sounds, Soft. absent: Tenderness - Rectal Exam Rectal Exam: NORMAL INSPECTION - Extremities Exam Extremities exam: Positive for: normal inspection - Back Exam Back exam: NORMAL INSPECTION - Neurological Exam Neurological exam: Abnormal Gait, Alert, CN II-XII Intact, Oriented x3, Reflexes Normal - Psychiatric Exam Psychiatric exam: Normal Affect, Normal Mood - Skin Skin Exam: Dry, Intact, Normal Color, Warm Results - Vital Signs Recent Vital Signs: Last Vital Signs Temp 98.7 F 07/16/18 07:49 Pulse 71 07/16/18 07:49 Resp 20 07/16/18 07:49 BP 173/72 H 07/16/18 07:49 Pulse Ox 100 07/16/18 07:49 - Labs Labs: Laboratory Results - last 24 hr 07/16/18 05:38 POC Glucose (mg/dL) 158 H Assessment & Plan - Assessment and Plan (Free Text) Assessment: NEW ONSET ATRIAL FIBRILLATION UNCONTROLLED HTN MORBID OBESITY NEW ONSET DIABETES L BREAST CANCER DECONDITIONING Plan: SEE ORDERS PT/OT - Date & Time Date: 07/16/18 Time: 09:14
--- NOTE | 2018-07-16 11:31 | CP.PCM.PN ---
Subjective - Date & Time of Evaluation Date of Evaluation: 07/16/18 Time of Evaluation: 11:29 - Subjective Subjective: htn mgmt Objective - Vital Signs/Intake and Output Vital Signs (last 24 hours): Temp Pulse Resp BP Pulse Ox 98.7 F 71 20 173/72 H 100 07/16/18 07:49 07/16/18 09:10 07/16/18 07:49 07/16/18 09:10 07/16/18 07:49 - Medications Medications: Current Medications Acetaminophen (Tylenol 325mg Tab) 650 mg PO Q4 PRN PRN Reason: Headache Last Admin: 07/16/18 07:46 Dose: 650 mg Amlodipine Besylate (Norvasc) 10 mg PO DAILY [facility] Last Admin: 07/16/18 09:10 Dose: 10 mg Aspirin (Ecotrin) 81 mg PO DAILY [facility] Last Admin: 07/16/18 09:09 Dose: 81 mg Dabigatran (Pradaxa) 150 mg PO BID [facility]; Protocol Last Admin: 07/16/18 09:10 Dose: 150 mg Digoxin (Digoxin) 0.125 mg PO DAILY [facility] Last Admin: 07/16/18 09:09 Dose: 0.125 mg Glipizide (Glucotrol) 2.5 mg PO ACB [facility] Hydrochlorothiazide (Microzide) 12.5 mg PO DAILY [facility] Last Admin: 07/16/18 09:10 Dose: 12.5 mg Latanoprost (Xalatan Opht) 1 drop OU HS [facility] Last Admin: 07/15/18 21:21 Dose: 1 drop Losartan Potassium (Cozaar) 100 mg PO DAILY [facility] Last Admin: 07/16/18 09:09 Dose: 100 mg Metoprolol Tartrate (Lopressor) 100 mg PO Q12 [facility] Last Admin: 07/16/18 09:09 Dose: 100 mg Timolol Maleate (Timoptic 0.5% Ophth Soln) 1 drop OU BID [facility] Last Admin: 07/16/18 09:10 Dose: 1 drop Assessment and Plan - Assessment and Plan (Free Text) Assessment: #1Atrial fibrillation : controlled rate, anticoagulation with Pradaxa #2 Hypertension: add hydralazine 10mg tid to regimen, continue beta nicole, ARB, Calcium Nicole, Diuretic
[2018-07-16] MEDS: Latanoprost 0.005% Opht SOUTION OU SCH (21:20)
[2018-07-17 06:53] LABS: HEMOGLOBIN 14.4 g/dL (12.0-16.0); MEAN CELL VOLUME 95.8 fl (81.0-99.0); MEAN CORPUSCULAR HEMOGLOBIN 32.1 pg (27.0-31.0); MEAN CORPUSCULAR HGB CONC 33.5 g/dL (33.0-37.0); RBC 4.48 Mil/uL (3.80-5.20); RED CELL DISTRIBUTION WIDTH 13.2 % (11.5-14.5); WHITE BLOOD COUNT 7.1 K/uL (4.8-10.8)
[2018-07-17 07:06] LABS: BLOOD UREA NITROGEN 20 mg/dl (7-17); CALCIUM 9.7 mg/dL (8.4-10.2); GFR NON-AFRICAN AMERICAN > 60
[2018-07-17] MEDS: Digoxin 125 mcg (0.125 mg) Tab PO SCH (08:19)
--- NOTE | 2018-07-17 08:30 | CP.PCM.PN ---
Subjective - Date & Time of Evaluation Date of Evaluation: 07/17/18 Time of Evaluation: 08:30 - Subjective Subjective: C/O RECURRENT EPISODES OF NAUSEA NO CHEST PAINS/VOMITING OR PALPITATIONS Objective - Vital Signs/Intake and Output Vital Signs (last 24 hours): Temp Pulse Resp BP Pulse Ox 98.5 F 70 20 133/75 96 07/17/18 08:08 07/17/18 08:21 07/17/18 08:08 07/17/18 08:21 07/17/18 08:08 - Medications Medications: Current Medications Acetaminophen (Tylenol 325mg Tab) 650 mg PO Q4 PRN PRN Reason: Headache Last Admin: 07/17/18 04:56 Dose: 650 mg Amlodipine Besylate (Norvasc) 10 mg PO DAILY [facility] Last Admin: 07/17/18 08:21 Dose: 10 mg Aspirin (Ecotrin) 81 mg PO DAILY [facility] Last Admin: 07/17/18 08:19 Dose: 81 mg Dabigatran (Pradaxa) 150 mg PO BID [facility]; Protocol Last Admin: 07/17/18 08:20 Dose: 150 mg Digoxin (Digoxin) 0.125 mg PO DAILY [facility] Last Admin: 07/17/18 08:19 Dose: 0.125 mg Glipizide (Glucotrol) 2.5 mg PO ACB [facility] Last Admin: 07/17/18 08:19 Dose: 2.5 mg Hydralazine HCl (Apresoline) 10 mg PO TID [facility] Last Admin: 07/17/18 08:17 Dose: 10 mg Hydrochlorothiazide (Microzide) 12.5 mg PO DAILY [facility] Last Admin: 07/17/18 08:20 Dose: 12.5 mg Latanoprost (Xalatan Opht) 1 drop OU HS [facility] Last Admin: 07/16/18 21:20 Dose: 1 drop Losartan Potassium (Cozaar) 100 mg PO DAILY [facility] Last Admin: 07/17/18 08:17 Dose: 100 mg Metoprolol Tartrate (Lopressor) 100 mg PO Q12 [facility] Last Admin: 07/17/18 08:18 Dose: 100 mg Ondansetron HCl (Zofran Tab) 4 mg PO Q6 PRN PRN Reason: Nausea/Vomiting Last Admin: 07/16/18 15:03 Dose: 4 mg Timolol Maleate (Timoptic 0.5% Ophth Soln) 1 drop OU BID [facility] Last Admin: 07/17/18 08:21 Dose: 1 drop - Labs Labs: 07/17/18 06:45 07/17/18 06:45 - Constitutional Appears: No Acute Distress - Head Exam Head Exam: ATRAUMATIC, NORMAL INSPECTION, NORMOCEPHALIC - Eye Exam Eye Exam: EOMI, Normal appearance, PERRL Pupil Exam: NORMAL ACCOMODATION, PERRL - ENT Exam ENT Exam: Mucous Membranes Moist, Normal Exam - Neck Exam Neck Exam: Full ROM, Normal Inspection. absent: Lymphadenopathy - Respiratory Exam Respiratory Exam: Clear to Ausculation Bilateral, NORMAL BREATHING PATTERN - Cardiovascular Exam Cardiovascular Exam: Irregular Rhythm, +S1, +S2. absent: Murmur - GI/Abdominal Exam GI & Abdominal Exam: Soft, Normal Bowel Sounds. absent: Tenderness - Rectal Exam Rectal Exam: NORMAL INSPECTION - Extremities Exam Extremities Exam: Full ROM, Normal Capillary Refill, Normal Inspection. absent: Joint Swelling, Pedal Edema - Back Exam Back Exam: NORMAL INSPECTION - Neurological Exam Neurological Exam: Alert, Awake, CN II-XII Intact, Normal Gait, Oriented x3 - Psychiatric Exam Psychiatric exam: Normal Affect, Normal Mood - Skin Skin Exam: Dry, Intact, Normal Color, Warm Assessment and Plan - Assessment and Plan (Free Text) Assessment: ATRIAL FIB HTN DIABETES OBESITY DECONDITIONING Plan: CONTINUE CURRENT RX PT/OT
[2018-07-17] MEDS: Pantoprazole 40 mg EC Tab PO SCH (12:10)
--- NOTE | 2018-07-17 18:23 | CARD ---
APPROVED REPORT Date of service: 07/17/2018 EKG Measurement Heart [id number] <Conclusion> Atrial fibrillation Minimal voltage criteria for LVH, may be normal variant Nonspecific ST and T wave abnormality Abnormal ECG
[2018-07-17] MEDS: Latanoprost 0.005% Opht SOUTION OU SCH (21:13)
[2018-07-18] MEDS: Pantoprazole 40 mg EC Tab PO SCH (08:37)
[2018-07-18] MEDS: Digoxin 125 mcg (0.125 mg) Tab PO SCH (08:38)
--- NOTE | 2018-07-18 13:05 | CP.PCM.PN ---
Subjective - Date & Time of Evaluation Date of Evaluation: 07/18/18 Time of Evaluation: 13:10 - Subjective Subjective: FEELS BETTER TODAY NO APPARENT DISTRESS Objective - Vital Signs/Intake and Output Vital Signs (last 24 hours): Temp Pulse Resp BP Pulse Ox 98.2 F 72 20 153/77 H 98 07/18/18 07:53 07/18/18 11:08 07/18/18 07:53 07/18/18 11:08 07/18/18 11:08 - Medications Medications: Current Medications Acetaminophen (Tylenol 325mg Tab) 650 mg PO Q4 PRN PRN Reason: Headache Last Admin: 07/17/18 04:56 Dose: 650 mg Amlodipine Besylate (Norvasc) 10 mg PO DAILY [facility] Last Admin: 07/18/18 08:38 Dose: 10 mg Aspirin (Ecotrin) 81 mg PO DAILY [facility] Last Admin: 07/18/18 08:38 Dose: 81 mg Dabigatran (Pradaxa) 150 mg PO BID [facility]; Protocol Last Admin: 07/18/18 08:35 Dose: 150 mg Digoxin (Digoxin) 0.125 mg PO DAILY [facility] Last Admin: 07/18/18 08:38 Dose: 0.125 mg Glipizide (Glucotrol) 2.5 mg PO ACB [facility] Last Admin: 07/18/18 08:36 Dose: 2.5 mg Hydralazine HCl (Apresoline) 10 mg PO TID [facility] Last Admin: 07/18/18 08:36 Dose: 10 mg Hydrochlorothiazide (Microzide) 12.5 mg PO DAILY [facility] Last Admin: 07/18/18 08:38 Dose: 12.5 mg Latanoprost (Xalatan Opht) 1 drop OU HS [facility] Last Admin: 07/17/18 21:13 Dose: 1 drop Losartan Potassium (Cozaar) 100 mg PO DAILY [facility] Last Admin: 07/18/18 08:37 Dose: 100 mg Metoprolol Tartrate (Lopressor) 100 mg PO Q12 [facility] Last Admin: 07/18/18 08:37 Dose: 100 mg Ondansetron HCl (Zofran Tab) 4 mg PO Q6 PRN PRN Reason: Nausea/Vomiting Last Admin: 07/17/18 12:18 Dose: 4 mg Pantoprazole Sodium (Protonix Ec Tab) 40 mg PO DAILY [facility] Last Admin: 07/18/18 08:37 Dose: 40 mg Timolol Maleate (Timoptic 0.5% Ophth Soln) 1 drop OU BID [facility] Last Admin: 07/18/18 08:39 Dose: 1 drop - Labs Labs: 07/17/18 06:45 07/17/18 06:45 - Constitutional Appears: No Acute Distress - Head Exam Head Exam: ATRAUMATIC, NORMAL INSPECTION, NORMOCEPHALIC - Eye Exam Eye Exam: EOMI, Normal appearance, PERRL Pupil Exam: NORMAL ACCOMODATION, PERRL - ENT Exam ENT Exam: Mucous Membranes Moist, Normal Exam - Neck Exam Neck Exam: Full ROM, Normal Inspection. absent: Lymphadenopathy - Respiratory Exam Respiratory Exam: Clear to Ausculation Bilateral, NORMAL BREATHING PATTERN - Cardiovascular Exam Cardiovascular Exam: Irregular Rhythm, +S1, +S2. absent: Murmur - GI/Abdominal Exam GI & Abdominal Exam: Soft, Normal Bowel Sounds. absent: Tenderness - Rectal Exam Rectal Exam: NORMAL INSPECTION - Extremities Exam Extremities Exam: Full ROM, Normal Capillary Refill, Normal Inspection. absent: Joint Swelling, Pedal Edema - Back Exam Back Exam: NORMAL INSPECTION - Neurological Exam Neurological Exam: Alert, Awake, CN II-XII Intact, Normal Gait, Oriented x3 - Psychiatric Exam Psychiatric exam: Normal Affect, Normal Mood - Skin Skin Exam: Dry, Intact, Normal Color, Warm Assessment and Plan - Assessment and Plan (Free Text) Assessment: ATRIAL FIB DM HTN BREAST CANCER Plan: CONTINUE CURRENT RX
[2018-07-18] MEDS: Latanoprost 0.005% Opht SOUTION OU SCH (21:55)
[2018-07-19] MEDS: Digoxin 125 mcg (0.125 mg) Tab PO SCH (09:39)
[2018-07-19] MEDS: Pantoprazole 40 mg EC Tab PO SCH (09:40)
--- NOTE | 2018-07-19 10:45 | CP.PCM.PN ---
Subjective - Date & Time of Evaluation Date of Evaluation: 07/19/18 Time of Evaluation: 10:45 - Subjective Subjective: CLINICALLY IMPROVED NO NAUSEA/VOMITING NO CHEST PAINS OR PALPITATIONS Objective - Vital Signs/Intake and Output Vital Signs (last 24 hours): Temp Pulse Resp BP Pulse Ox 97.4 F L 74 20 113/71 98 07/19/18 10:10 07/19/18 10:10 07/19/18 10:10 07/19/18 10:10 07/19/18 10:10 - Medications Medications: Current Medications Acetaminophen (Tylenol 325mg Tab) 650 mg PO Q4 PRN PRN Reason: Headache Last Admin: 07/17/18 04:56 Dose: 650 mg Amlodipine Besylate (Norvasc) 10 mg PO DAILY [facility] Last Admin: 07/19/18 09:40 Dose: 10 mg Aspirin (Ecotrin) 81 mg PO DAILY [facility] Last Admin: 07/19/18 09:39 Dose: 81 mg Dabigatran (Pradaxa) 150 mg PO BID [facility]; Protocol Last Admin: 07/19/18 09:30 Dose: 150 mg Digoxin (Digoxin) 0.125 mg PO DAILY [facility] Last Admin: 07/19/18 09:39 Dose: 0.125 mg Glipizide (Glucotrol) 2.5 mg PO ACB [facility] Last Admin: 07/19/18 09:39 Dose: 2.5 mg Hydralazine HCl (Apresoline) 10 mg PO TID [facility] Last Admin: 07/19/18 09:39 Dose: 10 mg Hydrochlorothiazide (Microzide) 12.5 mg PO DAILY [facility] Last Admin: 07/19/18 09:39 Dose: 12.5 mg Latanoprost (Xalatan Opht) 1 drop OU HS [facility] Last Admin: 07/18/18 21:55 Dose: 1 drop Losartan Potassium (Cozaar) 100 mg PO DAILY [facility] Last Admin: 07/19/18 09:31 Dose: 100 mg Metoprolol Tartrate (Lopressor) 100 mg PO Q12 [facility] Last Admin: 07/19/18 09:38 Dose: 100 mg Ondansetron HCl (Zofran Tab) 4 mg PO Q6 PRN PRN Reason: Nausea/Vomiting Last Admin: 07/17/18 12:18 Dose: 4 mg Pantoprazole Sodium (Protonix Ec Tab) 40 mg PO DAILY [facility] Last Admin: 07/19/18 09:40 Dose: 40 mg Timolol Maleate (Timoptic 0.5% Ophth Soln) 1 drop OU BID [facility] Last Admin: 07/19/18 09:41 Dose: 1 drop - Labs Labs: 07/17/18 06:45 07/17/18 06:45 - Constitutional Appears: No Acute Distress - Head Exam Head Exam: ATRAUMATIC, NORMAL INSPECTION, NORMOCEPHALIC - Eye Exam Eye Exam: EOMI, Normal appearance, PERRL Pupil Exam: NORMAL ACCOMODATION, PERRL - ENT Exam ENT Exam: Mucous Membranes Moist, Normal Exam - Neck Exam Neck Exam: Full ROM, Normal Inspection. absent: Lymphadenopathy - Respiratory Exam Respiratory Exam: Clear to Ausculation Bilateral, NORMAL BREATHING PATTERN - Cardiovascular Exam Cardiovascular Exam: REGULAR RHYTHM, +S1, +S2. absent: Murmur - GI/Abdominal Exam GI & Abdominal Exam: Soft, Normal Bowel Sounds. absent: Tenderness - Rectal Exam Rectal Exam: NORMAL INSPECTION - Extremities Exam Extremities Exam: Full ROM, Normal Capillary Refill, Normal Inspection. absent: Joint Swelling, Pedal Edema - Back Exam Back Exam: NORMAL INSPECTION - Neurological Exam Neurological Exam: Alert, Awake, CN II-XII Intact, Normal Gait, Oriented x3 - Psychiatric Exam Psychiatric exam: Normal Affect, Normal Mood - Skin Skin Exam: Dry, Intact, Normal Color, Warm Assessment and Plan - Assessment and Plan (Free Text) Assessment: NEW ONSET ATRIAL FIBRILLATION--RATE CONTROLLED NEW ONSET TYPE 2 DIABETES HTN--BETTER CONTROLLED OBESITY GENERAL DEBILITY Plan: CONTINUE CURRENT RX DIABETIC TEACHING PT/OT
[2018-07-19] MEDS: Latanoprost 0.005% Opht SOUTION OU SCH (21:54)
[2018-07-20] MEDS: Pantoprazole 40 mg EC Tab PO SCH (08:22)
[2018-07-20] MEDS: Digoxin 125 mcg (0.125 mg) Tab PO SCH (08:24)
--- NOTE | 2018-07-20 10:48 | CP.PCM.PN ---
Subjective - Date & Time of Evaluation Date of Evaluation: 07/20/18 Time of Evaluation: 10:50 - Subjective Subjective: FEELS BETTER NAUSEA/VOMITING RESOLVED NO CHEST PAINS/PALPITATIONS Objective - Vital Signs/Intake and Output Vital Signs (last 24 hours): Temp Pulse Resp BP Pulse Ox 98.2 F 74 20 138/84 98 07/20/18 08:33 07/20/18 08:33 07/20/18 08:33 07/20/18 08:33 07/20/18 08:33 - Medications Medications: Current Medications Acetaminophen (Tylenol 325mg Tab) 650 mg PO Q4 PRN PRN Reason: Headache Last Admin: 07/17/18 04:56 Dose: 650 mg Amlodipine Besylate (Norvasc) 10 mg PO DAILY [facility] Last Admin: 07/20/18 08:23 Dose: 10 mg Aspirin (Ecotrin) 81 mg PO DAILY [facility] Last Admin: 07/20/18 08:24 Dose: 81 mg Dabigatran (Pradaxa) 150 mg PO BID [facility]; Protocol Last Admin: 07/20/18 08:20 Dose: 150 mg Digoxin (Digoxin) 0.125 mg PO DAILY [facility] Last Admin: 07/20/18 08:24 Dose: 0.125 mg Glipizide (Glucotrol) 2.5 mg PO ACB [facility] Last Admin: 07/20/18 08:23 Dose: 2.5 mg Hydralazine HCl (Apresoline) 10 mg PO TID [facility] Last Admin: 07/20/18 08:23 Dose: 10 mg Hydrochlorothiazide (Microzide) 12.5 mg PO DAILY [facility] Last Admin: 07/20/18 08:25 Dose: 12.5 mg Latanoprost (Xalatan Opht) 1 drop OU HS [facility] Last Admin: 07/19/18 21:54 Dose: 1 drop Losartan Potassium (Cozaar) 100 mg PO DAILY [facility] Last Admin: 07/20/18 08:22 Dose: 100 mg Metoprolol Tartrate (Lopressor) 100 mg PO Q12 [facility] Last Admin: 07/20/18 08:21 Dose: 100 mg Ondansetron HCl (Zofran Tab) 4 mg PO Q6 PRN PRN Reason: Nausea/Vomiting Last Admin: 07/17/18 12:18 Dose: 4 mg Pantoprazole Sodium (Protonix Ec Tab) 40 mg PO DAILY [facility] Last Admin: 07/20/18 08:22 Dose: 40 mg Timolol Maleate (Timoptic 0.5% Ophth Soln) 1 drop OU BID [facility] Last Admin: 07/20/18 08:25 Dose: 1 drop - Labs Labs: 07/17/18 06:45 07/17/18 06:45 - Constitutional Appears: No Acute Distress - Head Exam Head Exam: ATRAUMATIC, NORMAL INSPECTION, NORMOCEPHALIC - Eye Exam Eye Exam: EOMI, Normal appearance, PERRL Pupil Exam: NORMAL ACCOMODATION, PERRL - ENT Exam ENT Exam: Mucous Membranes Moist, Normal Exam - Neck Exam Neck Exam: Full ROM, Normal Inspection. absent: Lymphadenopathy - Respiratory Exam Respiratory Exam: Clear to Ausculation Bilateral, NORMAL BREATHING PATTERN - Cardiovascular Exam Cardiovascular Exam: Irregular Rhythm, +S1, +S2. absent: Murmur - GI/Abdominal Exam GI & Abdominal Exam: Soft, Normal Bowel Sounds. absent: Tenderness - Rectal Exam Rectal Exam: NORMAL INSPECTION - Extremities Exam Extremities Exam: Full ROM, Normal Capillary Refill, Normal Inspection. absent: Joint Swelling, Pedal Edema - Back Exam Back Exam: NORMAL INSPECTION - Neurological Exam Neurological Exam: Alert, Awake, CN II-XII Intact, Normal Gait, Oriented x3 - Psychiatric Exam Psychiatric exam: Normal Affect, Normal Mood - Skin Skin Exam: Dry, Intact, Normal Color, Warm Assessment and Plan - Assessment and Plan (Free Text) Assessment: NEW ONSET ATRIAL FIBRILLATION HTN NEW ONSET DIABETES [TYPE 2] OBESITY HX OF BREAST CANCER Plan: CONTINUE CURRENT RX DIABETIC TEACHING
[2018-07-20] MEDS: Latanoprost 0.005% Opht SOUTION OU SCH (21:46)
[2018-07-21 06:49] LABS: HEMOGLOBIN 13.2 g/dL (12.0-16.0); MEAN CELL VOLUME 95.8 fl (81.0-99.0); MEAN CORPUSCULAR HGB CONC 33.4 g/dL (33.0-37.0); RBC 4.14 Mil/uL (3.80-5.20); RED CELL DISTRIBUTION WIDTH 13.1 % (11.5-14.5); WHITE BLOOD COUNT 6.9 K/uL (4.8-10.8)
[2018-07-21 07:06] LABS: BLOOD UREA NITROGEN 22 mg/dl (7-17); CALCIUM 9.6 mg/dL (8.4-10.2); GFR NON-AFRICAN AMERICAN > 60
--- NOTE | 2018-07-21 08:23 | CP.PCM.PN ---
Subjective - Date & Time of Evaluation Date of Evaluation: 07/21/18 Time of Evaluation: 08:23 - Subjective Subjective: CLINICALLY IMPROVING RELUCTANT TO PERTAKE IN DIABETIC TEACHING Objective - Vital Signs/Intake and Output Vital Signs (last 24 hours): Temp Pulse Resp BP Pulse Ox 97.6 F 68 20 141/63 97 07/21/18 08:00 07/21/18 08:00 07/21/18 08:00 07/21/18 08:00 07/21/18 08:00 - Medications Medications: Current Medications Acetaminophen (Tylenol 325mg Tab) 650 mg PO Q4 PRN PRN Reason: Headache Last Admin: 07/17/18 04:56 Dose: 650 mg Amlodipine Besylate (Norvasc) 10 mg PO DAILY [facility] Last Admin: 07/20/18 08:23 Dose: 10 mg Aspirin (Ecotrin) 81 mg PO DAILY [facility] Last Admin: 07/20/18 08:24 Dose: 81 mg Dabigatran (Pradaxa) 150 mg PO BID [facility]; Protocol Last Admin: 07/20/18 16:55 Dose: 150 mg Digoxin (Digoxin) 0.125 mg PO DAILY [facility] Last Admin: 07/20/18 08:24 Dose: 0.125 mg Glipizide (Glucotrol) 2.5 mg PO ACB [facility] Last Admin: 07/20/18 08:23 Dose: 2.5 mg Hydralazine HCl (Apresoline) 10 mg PO TID [facility] Last Admin: 07/20/18 16:54 Dose: 10 mg Hydrochlorothiazide (Microzide) 12.5 mg PO DAILY [facility] Last Admin: 07/20/18 08:25 Dose: 12.5 mg Latanoprost (Xalatan Opht) 1 drop OU HS [facility] Last Admin: 07/20/18 21:46 Dose: 1 drop Losartan Potassium (Cozaar) 100 mg PO DAILY [facility] Last Admin: 07/20/18 08:22 Dose: 100 mg Metoprolol Tartrate (Lopressor) 100 mg PO Q12 [facility] Last Admin: 07/20/18 21:45 Dose: 100 mg Ondansetron HCl (Zofran Tab) 4 mg PO Q6 PRN PRN Reason: Nausea/Vomiting Last Admin: 07/17/18 12:18 Dose: 4 mg Pantoprazole Sodium (Protonix Ec Tab) 40 mg PO DAILY [facility] Last Admin: 07/20/18 08:22 Dose: 40 mg Timolol Maleate (Timoptic 0.5% Oph Soln) 1 drop OU BID [facility] Last Admin: 07/20/18 16:55 Dose: 1 drop - Labs Labs: 07/21/18 06:00 07/21/18 06:00 - Constitutional Appears: No Acute Distress - Head Exam Head Exam: ATRAUMATIC, NORMAL INSPECTION, NORMOCEPHALIC - Eye Exam Eye Exam: EOMI, Normal appearance, PERRL Pupil Exam: NORMAL ACCOMODATION, PERRL - ENT Exam ENT Exam: Mucous Membranes Moist, Normal Exam - Neck Exam Neck Exam: Full ROM, Normal Inspection. absent: Lymphadenopathy - Respiratory Exam Respiratory Exam: Clear to Ausculation Bilateral, NORMAL BREATHING PATTERN - Cardiovascular Exam Cardiovascular Exam: Irregular Rhythm, +S1, +S2. absent: Murmur - GI/Abdominal Exam GI & Abdominal Exam: Soft, Normal Bowel Sounds. absent: Tenderness - Rectal Exam Rectal Exam: NORMAL INSPECTION - Extremities Exam Extremities Exam: Full ROM, Normal Capillary Refill, Normal Inspection. absent: Joint Swelling, Pedal Edema - Back Exam Back Exam: NORMAL INSPECTION - Neurological Exam Neurological Exam: Alert, Awake, CN II-XII Intact, Normal Gait, Oriented x3 - Psychiatric Exam Psychiatric exam: Normal Affect, Normal Mood - Skin Skin Exam: Dry, Intact, Normal Color, Warm Assessment and Plan - Assessment and Plan (Free Text) Assessment: NEW ONSET ATRIAL FIB HTN NEW ONSET DIABETES OBESITY Plan: CONTINUE CURRENT RX DIABETIC TEACHING
[2018-07-21] MEDS: Pantoprazole 40 mg EC Tab PO SCH (08:43)
[2018-07-21] MEDS: Digoxin 125 mcg (0.125 mg) Tab PO SCH (08:44)
--- NOTE | 2018-07-21 10:08 | CP.PCM.CON ---
History of Present Illness - History of Present Illness History of Present Illness: THE PATIENT IS A 77 YEAR OLD FEMALE WHO I NOW FROM MY OFFICE PRACTICE WITH A LONG HISTORY OF HYPERTENSION AND SHE WAS OVERWEIGHT. SHE WAS ADMITTED TO [facility] ON 07/11/18 FOR NEW ONSET ATRIAL FIBRILLATION AND SHE WAS ALSO DIAGNOSED WITH TYPE 2 DM. SHE IS NOW IN TCU AND I HAVE BEEN ASKED TO FOLLOW HER. SHE WAS DIZZY AND NAUSEOUS WHEN ADMITTED TO ON 07/11/18 BUT THESE SYMPTOMS HAVE RESOLVED. SHE DENIES CHEST PAIN, PALPITATIONS OR SOB. SHE STATES SHE IS DOING WELL WITH [facility]. Past Patient History - Past Medical History & Family History Past Medical History?: Yes - Past Social History Smoking Status: Never Smoked - CARDIAC Hx Cardiac Disorders: Yes Hx Hypertension: Yes - PULMONARY Hx Respiratory Disorders: No - NEUROLOGICAL Hx Neurological Disorder: No - HEENT Hx HEENT Problems: No - RENAL Hx Chronic Kidney Disease: No - ENDOCRINE/METABOLIC Hx Endocrine Disorders: No - HEMATOLOGICAL/ONCOLOGICAL Hx Blood Disorders: No Hx AIDS: No Hx Human Immunodeficiency Virus (HIV): No - INTEGUMENTARY Hx Dermatological Problems: No - MUSCULOSKELETAL/RHEUMATOLOGICAL Hx Musculoskeletal Disorders: No Hx Falls: No - GASTROINTESTINAL Hx Gastrointestinal Disorders: No - GENITOURINARY/GYNECOLOGICAL Hx Genitourinary Disorders: Yes Other/Comment: 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 - PSYCHIATRIC Hx Psychophysiologic Disorder: No Hx Substance Use: No - SURGICAL HISTORY Other/Comment: tumor removal left breast - ANESTHESIA Hx Anesthesia: Yes Hx Anesthesia Reactions: No Hx Malignant Hyperthermia: No Meds Allergies/Adverse Reactions: Allergies Allergy/AdvReac Type Severity Reaction Status Date / Time Penicillins Allergy SWELLING Verified 07/15/18 19:20 - Medications Medications: Current Medications Acetaminophen (Tylenol 325mg Tab) 650 mg PO Q4 PRN PRN Reason: Headache Last Admin: 07/17/18 04:56 Dose: 650 mg Amlodipine Besylate (Norvasc) 10 mg PO DAILY [facility] Last Admin: 07/21/18 08:46 Dose: 10 mg Aspirin (Ecotrin) 81 mg PO DAILY [facility] Last Admin: 07/21/18 08:44 Dose: 81 mg Dabigatran (Pradaxa) 150 mg PO BID [facility]; Protocol Last Admin: 07/21/18 08:44 Dose: 150 mg Digoxin (Digoxin) 0.125 mg PO DAILY [facility] Last Admin: 07/21/18 08:44 Dose: 0.125 mg Glipizide (Glucotrol) 2.5 mg PO ACB [facility] Last Admin: 07/21/18 07:30 Dose: 2.5 mg Hydralazine HCl (Apresoline) 10 mg PO TID [facility] Last Admin: 07/21/18 08:43 Dose: 10 mg Hydrochlorothiazide (Microzide) 12.5 mg PO DAILY [facility] Last Admin: 07/21/18 08:45 Dose: 12.5 mg Latanoprost (Xalatan Opht) 1 drop OU HS [facility] Last Admin: 07/20/18 21:46 Dose: 1 drop Losartan Potassium (Cozaar) 100 mg PO DAILY [facility] Last Admin: 07/21/18 08:46 Dose: 100 mg Metoprolol Tartrate (Lopressor) 100 mg PO Q12 [facility] Last Admin: 07/21/18 08:45 Dose: 100 mg Ondansetron HCl (Zofran Tab) 4 mg PO Q6 PRN PRN Reason: Nausea/Vomiting Last Admin: 07/17/18 12:18 Dose: 4 mg Pantoprazole Sodium (Protonix Ec Tab) 40 mg PO DAILY [facility] Last Admin: 07/21/18 08:43 Dose: 40 mg Timolol Maleate (Timoptic 0.5% Ophth Soln) 1 drop OU BID [facility] Last Admin: 07/21/18 08:46 Dose: 1 drop Physical Exam - Respiratory Exam Respiratory Exam: Clear to Auscultation Bilateral - Cardiovascular Exam Cardiovascular Exam: Irregular Rhythm, +S1, +S2 - Extremities Exam Additional comments: NO LE EDEMA - Additional Findings Additional findings: RECENT GLUCOSE LEVELS 160'S TO 180'S EKG TODAY ATRIAL FIBRILLATION WITH MODERATE RATE Results - Vital Signs Recent Vital Signs: Last Vital Signs Temp 97.6 F 07/21/18 08:00 Pulse 68 07/21/18 08:46 Resp 20 07/21/18 08:00 BP 141/63 07/21/18 08:46 Pulse Ox 97 07/21/18 08:00 - Labs Result Diagrams: 07/21/18 06:00 07/21/18 06:00 Labs: Laboratory Results - last 24 hr 07/20/18 07/20/18 07/20/18 11:27 16:09 21:43 WBC RBC Hgb Hct MCV MCH MCHC RDW Plt Count Sodium Potassium Chloride Carbon Dioxide Anion Gap BUN Creatinine Est GFR ( Amer) Est GFR (Non-Af Amer) POC Glucose (mg/dL) 166 H 112 H 187 H Random Glucose Calcium Digoxin 07/21/18 07/21/18 07/21/18 06:00 06:00 06:00 WBC 6.9 RBC 4.14 Hgb 13.2 Hct 39.7 MCV 95.8 MCH 32.0 H MCHC 33.4 RDW 13.1 Plt Count 243 Sodium 140 Potassium 4.5 Chloride 102 Carbon Dioxide 30 Anion Gap 13 BUN 22 H Creatinine 0.7 Est GFR ( Amer) > 60 Est GFR (Non-Af Amer) > 60 POC Glucose (mg/dL) Random Glucose 178 H Calcium 9.6 Digoxin 0.5 L Assessment & Plan - Assessment and Plan (Free Text) Assessment: ATRIAL FIBRILLATION HYPERTENSION TYPE 2 DM OVERWEIGHT Plan: CONTINUE METOPROLOL, AMLODIPINE, APRESOLINE, LOSARTAN, HCTZ, DIGOXIN, ASPIRIN, PRADAXA AND GLUCOTROL CONTINUE [facility]
--- NOTE | 2018-07-21 17:22 | CARD ---
APPROVED REPORT Date of service: 07/21/2018 EKG Measurement Heart [id number] <Conclusion> Atrial fibrillation Minimal voltage criteria for LVH, may be normal variant Abnormal ECG
[2018-07-21] MEDS: Latanoprost 0.005% Opht SOUTION OU SCH (22:12)
--- NOTE | 2018-07-22 08:29 | CP.PCM.PN ---
Subjective - Date & Time of Evaluation Date of Evaluation: 07/22/18 Time of Evaluation: 08:29 - Subjective Subjective: no chest pains/palpitations in denial re--diabetes vss Objective - Vital Signs/Intake and Output Vital Signs (last 24 hours): Temp Pulse Resp BP Pulse Ox 97.2 F L 63 20 135/67 97 07/22/18 08:20 07/22/18 08:20 07/22/18 08:20 07/22/18 08:20 07/22/18 08:20 - Medications Medications: Current Medications Acetaminophen (Tylenol 325mg Tab) 650 mg PO Q4 PRN PRN Reason: Headache Last Admin: 07/17/18 04:56 Dose: 650 mg Amlodipine Besylate (Norvasc) 10 mg PO DAILY [facility] Last Admin: 07/21/18 08:46 Dose: 10 mg Aspirin (Ecotrin) 81 mg PO DAILY [facility] Last Admin: 07/21/18 08:44 Dose: 81 mg Dabigatran (Pradaxa) 150 mg PO BID [facility]; Protocol Last Admin: 07/21/18 16:22 Dose: 150 mg Digoxin (Digoxin) 0.125 mg PO DAILY [facility] Last Admin: 07/21/18 08:44 Dose: 0.125 mg Glipizide (Glucotrol) 2.5 mg PO ACB [facility] Last Admin: 07/22/18 07:05 Dose: 2.5 mg Hydralazine HCl (Apresoline) 10 mg PO TID [facility] Last Admin: 07/21/18 16:22 Dose: 10 mg Hydrochlorothiazide (Microzide) 12.5 mg PO DAILY [facility] Last Admin: 07/21/18 08:45 Dose: 12.5 mg Latanoprost (Xalatan Opht) 1 drop OU HS [facility] Last Admin: 07/21/18 22:12 Dose: 1 drop Losartan Potassium (Cozaar) 100 mg PO DAILY [facility] Last Admin: 07/21/18 08:46 Dose: 100 mg Metoprolol Tartrate (Lopressor) 100 mg PO Q12 [facility] Last Admin: 07/21/18 22:11 Dose: 100 mg Ondansetron HCl (Zofran Tab) 4 mg PO Q6 PRN PRN Reason: Nausea/Vomiting Last Admin: 07/17/18 12:18 Dose: 4 mg Pantoprazole Sodium (Protonix Ec Tab) 40 mg PO DAILY [facility] Last Admin: 07/21/18 08:43 Dose: 40 mg Timolol Maleate (Timoptic 0.5% Ophth Soln) 1 drop OU BID [facility] Last Admin: 07/21/18 16:23 Dose: 1 drop - Labs Labs: 07/21/18 06:00 07/21/18 06:00 - Constitutional Appears: No Acute Distress - Head Exam Head Exam: ATRAUMATIC, NORMAL INSPECTION, NORMOCEPHALIC - Eye Exam Eye Exam: EOMI, Normal appearance, PERRL Pupil Exam: NORMAL ACCOMODATION, PERRL - ENT Exam ENT Exam: Mucous Membranes Moist, Normal Exam - Neck Exam Neck Exam: Full ROM, Normal Inspection. absent: Lymphadenopathy - Respiratory Exam Respiratory Exam: Clear to Ausculation Bilateral, NORMAL BREATHING PATTERN - Cardiovascular Exam Cardiovascular Exam: Irregular Rhythm, +S1, +S2. absent: Murmur - GI/Abdominal Exam GI & Abdominal Exam: Soft, Normal Bowel Sounds. absent: Tenderness - Rectal Exam Rectal Exam: NORMAL INSPECTION - Extremities Exam Extremities Exam: Full ROM, Normal Capillary Refill, Normal Inspection. absent: Joint Swelling, Pedal Edema - Back Exam Back Exam: NORMAL INSPECTION - Neurological Exam Neurological Exam: Alert, Awake, CN II-XII Intact, Normal Gait, Oriented x3 - Psychiatric Exam Psychiatric exam: Normal Affect, Normal Mood - Skin Skin Exam: Dry, Intact, Normal Color, Warm Assessment and Plan - Assessment and Plan (Free Text) Assessment: atrial fib dm htn Plan: diabetic teaching
[2018-07-22] MEDS: Pantoprazole 40 mg EC Tab PO SCH (09:53)
[2018-07-22] MEDS: Digoxin 125 mcg (0.125 mg) Tab PO SCH (09:54)
[2018-07-22] MEDS: Latanoprost 0.005% Opht SOUTION OU SCH (21:01)
--- NOTE | 2018-07-23 09:13 | CP.PCM.PN ---
Subjective - Date & Time of Evaluation Date of Evaluation: 07/23/18 Time of Evaluation: 09:15 - Subjective Subjective: CLINICALLY IMPROVED AMBULATING WITHOUT ASSISTANCE VSS NO CHEST PAINS/SOB NO PALPITATIONS IN DENIAL REGARDING NEW ONSET DIABETES AND RELUCTANT TO PERTAKE IN DIABETIC TEACHING Objective - Vital Signs/Intake and Output Vital Signs (last 24 hours): Temp Pulse Resp BP Pulse Ox 97.5 F L 74 20 159/77 H 100 07/23/18 08:05 07/23/18 08:05 07/23/18 08:05 07/23/18 08:05 07/23/18 08:05 - Medications Medications: Current Medications Acetaminophen (Tylenol 325mg Tab) 650 mg PO Q4 PRN PRN Reason: Headache Last Admin: 07/17/18 04:56 Dose: 650 mg Amlodipine Besylate (Norvasc) 10 mg PO DAILY [facility] Last Admin: 07/22/18 09:53 Dose: 10 mg Aspirin (Ecotrin) 81 mg PO DAILY [facility] Last Admin: 07/22/18 09:53 Dose: 81 mg Dabigatran (Pradaxa) 150 mg PO BID [facility]; Protocol Last Admin: 07/22/18 16:43 Dose: 150 mg Digoxin (Digoxin) 0.125 mg PO DAILY [facility] Last Admin: 07/22/18 09:54 Dose: 0.125 mg Glipizide (Glucotrol) 2.5 mg PO ACB [facility] Last Admin: 07/22/18 07:05 Dose: 2.5 mg Hydralazine HCl (Apresoline) 10 mg PO TID [facility] Last Admin: 07/22/18 16:44 Dose: 10 mg Hydrochlorothiazide (Microzide) 12.5 mg PO DAILY [facility] Last Admin: 07/22/18 09:56 Dose: 12.5 mg Latanoprost (Xalatan Opht) 1 drop OU HS [facility] Last Admin: 07/22/18 21:01 Dose: 1 drop Losartan Potassium (Cozaar) 100 mg PO DAILY [facility] Last Admin: 07/22/18 09:56 Dose: 100 mg Metoprolol Tartrate (Lopressor) 100 mg PO Q12 [facility] Last Admin: 07/22/18 21:00 Dose: 100 mg Ondansetron HCl (Zofran Tab) 4 mg PO Q6 PRN PRN Reason: Nausea/Vomiting Last Admin: 07/17/18 12:18 Dose: 4 mg Pantoprazole Sodium (Protonix Ec Tab) 40 mg PO DAILY [facility] Last Admin: 07/22/18 09:53 Dose: 40 mg Timolol Maleate (Timoptic 0.5% Ophth Soln) 1 drop OU BID [facility] Last Admin: 07/22/18 17:05 Dose: 1 drop - Labs Labs: 07/21/18 06:00 07/21/18 06:00 - Constitutional Appears: No Acute Distress - Head Exam Head Exam: ATRAUMATIC, NORMAL INSPECTION, NORMOCEPHALIC - Eye Exam Eye Exam: EOMI, Normal appearance, PERRL Pupil Exam: NORMAL ACCOMODATION, PERRL - ENT Exam ENT Exam: Mucous Membranes Moist, Normal Exam - Neck Exam Neck Exam: Full ROM, Normal Inspection. absent: Lymphadenopathy - Respiratory Exam Respiratory Exam: Clear to Ausculation Bilateral, NORMAL BREATHING PATTERN - Cardiovascular Exam Cardiovascular Exam: Irregular Rhythm, +S1, +S2. absent: Murmur - GI/Abdominal Exam GI & Abdominal Exam: Soft, Normal Bowel Sounds. absent: Tenderness - Rectal Exam Rectal Exam: NORMAL INSPECTION - Extremities Exam Extremities Exam: Full ROM, Normal Capillary Refill, Normal Inspection. absent: Joint Swelling, Pedal Edema - Back Exam Back Exam: NORMAL INSPECTION - Neurological Exam Neurological Exam: Alert, Awake, CN II-XII Intact, Normal Gait, Oriented x3 - Psychiatric Exam Psychiatric exam: Normal Affect, Normal Mood - Skin Skin Exam: Dry, Intact, Normal Color, Warm Assessment and Plan - Assessment and Plan (Free Text) Assessment: ATRIAL FIBRILLATION--BETTER CONTROLLED HTN-IMPROVED TYPE 2 DIABETES--IMPROVED MORBID OBESITY HX OF BREAST CANCER Plan: CONTINUE CURRENT RX FOR POSSIBLE D/C IN AM ADVISED COMPLIANCE TO MEDS AND DIET
[2018-07-23] MEDS: Digoxin 125 mcg (0.125 mg) Tab PO SCH (09:46)
[2018-07-23] MEDS: Pantoprazole 40 mg EC Tab PO SCH (09:47)
--- NOTE | 2018-07-23 13:29 | CP.PCM.PN ---
Subjective - Date & Time of Evaluation Date of Evaluation: 07/23/18 Time of Evaluation: 09:45 - Subjective Subjective: NO CHEST PAIN, PALPITATIONS OR SOB FEELS GOOD Objective - Vital Signs/Intake and Output Vital Signs (last 24 hours): Temp Pulse Resp BP Pulse Ox 97.5 F L 70 20 135/80 95 07/23/18 08:05 07/23/18 12:07 07/23/18 08:05 07/23/18 12:07 07/23/18 09:42 - Medications Medications: Current Medications Acetaminophen (Tylenol 325mg Tab) 650 mg PO Q4 PRN PRN Reason: Headache Last Admin: 07/17/18 04:56 Dose: 650 mg Amlodipine Besylate (Norvasc) 10 mg PO DAILY [facility] Last Admin: 07/23/18 09:47 Dose: 10 mg Aspirin (Ecotrin) 81 mg PO DAILY [facility] Last Admin: 07/23/18 09:46 Dose: 81 mg Dabigatran (Pradaxa) 150 mg PO BID [facility]; Protocol Last Admin: 07/23/18 09:45 Dose: 150 mg Digoxin (Digoxin) 0.125 mg PO DAILY [facility] Last Admin: 07/23/18 09:46 Dose: 0.125 mg Glipizide (Glucotrol) 2.5 mg PO ACB [facility] Last Admin: 07/23/18 09:43 Dose: 2.5 mg Hydralazine HCl (Apresoline) 10 mg PO TID [facility] Last Admin: 07/23/18 12:07 Dose: 10 mg Hydrochlorothiazide (Microzide) 12.5 mg PO DAILY [facility] Last Admin: 07/23/18 09:47 Dose: 12.5 mg Latanoprost (Xalatan Opht) 1 drop OU HS [facility] Last Admin: 07/22/18 21:01 Dose: 1 drop Losartan Potassium (Cozaar) 100 mg PO DAILY [facility] Last Admin: 07/23/18 09:46 Dose: 100 mg Metoprolol Tartrate (Lopressor) 100 mg PO Q12 [facility] Last Admin: 07/23/18 09:45 Dose: 100 mg Ondansetron HCl (Zofran Tab) 4 mg PO Q6 PRN PRN Reason: Nausea/Vomiting Last Admin: 07/17/18 12:18 Dose: 4 mg Pantoprazole Sodium (Protonix Ec Tab) 40 mg PO DAILY [facility] Last Admin: 07/23/18 09:47 Dose: 40 mg Timolol Maleate (Timoptic 0.5% [facility]) 1 drop OU BID [facility] Last Admin: 07/23/18 09:48 Dose: 1 drop - Labs Labs: 07/21/18 06:00 07/21/18 06:00 - Respiratory Exam Respiratory Exam: Clear to Ausculation Bilateral - Cardiovascular Exam Cardiovascular Exam: Irregular Rhythm, +S1, +S2 - Extremities Exam Additional comments: NO LE EDEMA Assessment and Plan - Assessment and Plan (Free Text) Assessment: ATRIAL FIBRILLATION HYPERTENSION TYPE 2 DM Plan: CONTINUE PRADAXA, DIGOXIN, METOPROLOL, APRESOLINE, LOSARTAN AND GLUCOTROL, AMLODIPINE CONTINUE [facility] IN TCU
[2018-07-23] MEDS: Latanoprost 0.005% Opht SOUTION OU SCH (21:16)
[2018-07-24 08:17] VITALS: TEMP 98.3; O2SAT 98
[2018-07-24] MEDS: Pantoprazole 40 mg EC Tab PO SCH (08:21)
[2018-07-24] MEDS: Digoxin 125 mcg (0.125 mg) Tab PO SCH (08:22)
[2018-07-24 08:24] VITALS: PULSE 68
--- NOTE | 2018-07-24 08:25 | CP.PCM.DIS ---
Provider - Provider Date of Admission: 07/15/18 19:30 Attending physician: Sabino Javed MD Consults: 07/15/18 21:49 Case Management Referral Routine Comment: Physician Instructions: Reason For Exam: Reason for Referral: Discharge Planning 07/16/18 14:42 Cardiology Consult Routine Comment: Consulting Provider: Victorino Palacios Consulting Physician: Victorino Palacios Reason for Consult: f/u from [facility] Time Spent in preparation of Discharge (in minutes): 35 Diagnosis - Discharge Diagnosis (1) Diabetes 1.5, managed as type 2 Status: Acute Onset Date: ~07/15/18 Comment: serum glucose controlled with oral hypoglycemics and diet (2) Hypertension Status: Chronic Comment: bp controlled on multiple oral meds (3) New onset a-fib Status: Acute Onset Date: ~07/15/18 Comment: atrial fibrillation persists but rate is controlled on digoxin. will obtain dig levels as out pt. pradaxa started for anticoagulation (4) Obesity Status: Chronic Comment: diet and exercise advised Hospital Course - Lab Results Lab Results: Most Recent Lab Values WBC 6.9 K/uL (4.8-10.8) 07/21/18 06:00 RBC 4.14 Mil/uL (3.80-5.20) 07/21/18 06:00 Hgb 13.2 g/dL (12.0-16.0) 07/21/18 06:00 Hct 39.7 % (34.0-47.0) 07/21/18 06:00 MCV 95.8 fl (81.0-99.0) 07/21/18 06:00 MCH 32.0 pg (27.0-31.0) H 07/21/18 06:00 MCHC 33.4 g/dL (33.0-37.0) 07/21/18 06:00 RDW 13.1 % (11.5-14.5) 07/21/18 06:00 Plt Count 243 K/uL (130-400) 07/21/18 06:00 Sodium 140 mmol/l (132-148) 07/21/18 06:00 Potassium 4.5 MMOL/L (3.6-5.0) 07/21/18 06:00 Chloride 102 mmol/L (98-107) 07/21/18 06:00 Carbon Dioxide 30 mmol/L (22-30) 07/21/18 06:00 Anion Gap 13 (10-20) 07/21/18 06:00 BUN 22 mg/dl (7-17) H 07/21/18 06:00 Creatinine 0.7 mg/dl (0.7-1.2) 07/21/18 06:00 Est GFR ( Amer) > 60 07/21/18 06:00 Est GFR (Non-Af Amer) > 60 07/21/18 06:00 POC Glucose (mg/dL) 180 mg/dL (65-110) H 07/23/18 20:20 Random Glucose 178 mg/dL (65-105) H 07/21/18 06:00 Calcium 9.6 mg/dL (8.4-10.2) 07/21/18 06:00 Digoxin 0.5 ng/mL (0.8-2.0) L 07/21/18 06:00 Discharge Exam - Head Exam Head Exam: ATRAUMATIC, NORMAL INSPECTION, NORMOCEPHALIC - Eye Exam Eye Exam: EOMI, Normal appearance, PERRL Pupil Exam: NORMAL ACCOMODATION, PERRL - Neck Exam Neck exam: Full Rom - Respiratory Exam Respiratory Exam: Clear to PA & Lateral - Cardiovascular Exam Cardiovascular Exam: Irregular Rhythm - GI/Abdominal Exam GI & Abdominal Exam: Normal Bowel Sounds - Rectal Exam Rectal Exam: NORMAL INSPECTION - Extremities Exam Extremities exam: full ROM - Neurological Exam Neurological exam: Alert, CN II-XII Intact, Normal Gait, Oriented x3, Reflexes Normal - Psychiatric Exam Psychiatric exam: Normal Affect, Normal Mood - Skin Skin Exam: Dry, Intact, Normal Color, Warm Discharge Plan - Follow Up Plan Condition: GOOD Disposition: HOME/ ROUTINE Additional Instructions: follow up with dr gilliland
[2018-07-24 12:49] VITALS: BP 135/52; PULSE 64
== END 2018-07-24 15:35 | disposition home or self-care (01) | DRG 310 ==
LOC: H.TCU 19:30
PROVIDERS: ADMIT Internal Medicine Pulmonary Disease; ATTEND Internal Medicine Pulmonary Disease
PROC: F08Z1FZ Dressing Techniques Treatment using Assistive, Adaptive, Supportive or Protective Equipment (ICD-10-PCS; principal; 2018-07-15)
PROC: F08Z4FZ Home Management Treatment using Assistive, Adaptive, Supportive or Protective Equipment (ICD-10-PCS; 2018-07-15)
PROC: F07Z8FZ Transfer Training Treatment using Assistive, Adaptive, Supportive or Protective Equipment (ICD-10-PCS; 2018-07-15)
PROC: F07Z9FZ Gait Training/Functional Ambulation Treatment using Assistive, Adaptive, Supportive or Protective Equipment (ICD-10-PCS; 2018-07-15)
PROC: F07L6GZ Therapeutic Exercise Treatment of Musculoskeletal System - Lower Back / Lower Extremity using Aerobic Endurance and Conditioning Equipment (ICD-10-PCS; 2018-07-15)
DX: I48.91 Unspecified atrial fibrillation (principal); I10 Essential (primary) hypertension; Z85.3 Personal history of malignant neoplasm of breast; E11.9 Type 2 diabetes mellitus without complications; Z68.35 Body mass index [BMI] 35.0-35.9, adult; R53.81 Other malaise; E66.9 Obesity, unspecified; Z88.0 Allergy status to penicillin